=== PATIENT | male | born 1970 | race African-American/Black ===

== ENCOUNTER 2019-04-22 08:49 | Emergency (ER) | payer OTHER, SELFPAY ==
[2019-04-22 08:58] VITALS: BP 125/85; PULSE 78; RESP 16; TEMP 36.3; O2SAT 99
--- NOTE | 2019-04-22 09:35 | ED.URI ---
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 EYES: Denies visual changes, redness, discharge. ENT: has rhinorrhea, congestion, sore throat, no otalgia. CARDIOVASCULAR: Denies chest pain, palpitations, edema. RESPIRATORY: Denies dyspnea, wheezing, has cough GASTROINTESTINAL: Denies abdominal pain, nausea, vomiting, diarrhea. GENITOURINARY: Denies dysuria, hematuria, abnormal discharge SKIN: Denies rash or itching. MUSCULOSKELETAL: Denies acute back pain, joint pain, or myalgia. NEUROLOGIC: Denies numbness, or focal weakness. PSYCHIATRIC: Denies anxiety or depression. [facility] Past Medical History Medical History Diabetes Hypertension Social History Social History (Updated 04/22/19 @ 09:38 by Jesika Jordan CNP) Smoking status: Never smoker Alcohol intake: current Gender identity (if verbalized by the patient): Male Comments At time of signature, I agree with nursing past medical, surgical, social and family history. There is no relevant family history pertinent to the presenting complaint. Exam Narrative: Exam Narrative: GENERAL: This is a well-nourished, well-developed patient, in moderate distress. HEAD: normocephalic, atraumatic. EYES: Sclera clear/white. Vision is grossly intact. EARS: External ears normal, auditory canals clear and without drainage, TMs normal without perforation. Hearing grossly intact. NOSE: External nose normal with nasal discharge, nares with redness, with rhinorrhea. THROAT: Mucous membranes moist, posterior pharynx erythema with tonsillar edema NECK: Neck supple, non-tender without lymphadenopathy, masses or thyromegaly. CARDIOVASCULAR: Regular rate and rhythm without murmurs, gallops, or rubs. RESPIRATORY: Clear to auscultation. Breath sounds equal bilaterally. No wheezes, rales, or rhonchi. GASTROINTESTINAL: Abdomen soft, non-tender, nondistended. Bowel sounds are active. No hepato-splenomegaly, or palpable masses. No guarding. SKIN: warm, intact with no suspicious lesions or rash, good texture and turgor. NEURO: awake, alert, and oriented to person, place and time. There were no obvious focal neurologic abnormalities. Steady gait EXTREMITIES: Normal range of motion. No edema BACK: Nontender without deformity or crepitance. No flank tenderness. Course Course Emergency Course: Flu Vital Signs Vital signs: Vital Signs Temperature 97.3 F L 04/22/19 08:58 Pulse Rate 78 04/22/19 08:58 Respiratory Rate 16 04/22/19 08:58 Blood Pressure 125/85 04/22/19 08:58 Pulse Oximetry 99 04/22/19 08:58 Temperature 97.3 F L 04/22/19 08:58 Pulse Rate 78 04/22/19 08:58 Respiratory Rate 16 04/22/19 08:58 Blood Pressure 125/85 04/22/19 08:58 Pulse Oximetry 99 04/22/19 08:58 MDM - URI/Sore Throat Differential Diagnosis Differ
== END 2019-04-22 10:05 | disposition home or self-care (01) ==
PROVIDERS: Emergency Provider Nurse Practitioner
DX: J06.9 Acute upper respiratory infection, unspecified (principal); E11.9 Type 2 diabetes mellitus without complications; I10 Essential (primary) hypertension; E78.00 Pure hypercholesterolemia, unspecified
CPT/HCPCS: 87804; 99213; G0463

== ENCOUNTER 2023-02-09 12:23 | Emergency (ER) | payer OTHER, SELFPAY ==
[2023-02-09 12:39] VITALS: BP 131/83; PULSE 68; RESP 16; TEMP 36.8; O2SAT 100
--- NOTE | 2023-02-09 13:32 | ED.URI ---
HPI - URI/Sore Throat General Chief Complaint: Upper Respiratory Infection Stated Complaint: cough,bodyaches,sinus problem Time Seen by Provider: 02/09/23 13:32 Source: patient Mode of arrival: ambulatory Limitations: no limitations History of Present Illness HPI Narrative: 52-year-old male presents with complaint of nasal congestion, sinus pressure, bilateral ear pressure, cough, chest congestion for 2-3 days. Workup today and had felt full. Reports body aches. Afebrile. No chest pain or shortness breath. Patient taking Zyrtec to treat symptoms. All systems reviewed and negative except as noted above. Related Data Home Medications Medication Instructions Recorded Confirmed lisinopril 40 mg tablet 40 mg PO DAILY 04/22/19 02/09/23 metformin 500 mg tablet 500 mg PO DAILY 04/22/19 02/09/23 simvastatin 20 mg tablet 20 mg PO DAILY 04/22/19 02/09/23 sitagliptin phosphate 100 mg 100 mg PO DAILY 04/22/19 02/09/23 tablet (Januvia) triamterene 37.5 1 tablet PO QAM 04/22/19 02/09/23 mg-hydrochlorothiazide 25 mg tablet verapamil 240 mg tablet,extended 240 mg PO DAILY 04/22/19 04/22/19 release Allergies Allergy/AdvReac Type Severity Reaction Status Date / Time No Known Allergies Allergy Verified 02/09/23 13:41 Review of Systems Review of Systems: CONSTITUTIONAL: Denies fever, chills, or sweats. reports fatigue. EYES: Denies visual changes, redness, or discharge. ENT: Reports rhinorrhea, congestion. Denies sore throat. Reports otalgia. CARDIOVASCULAR: Denies chest pain, palpitations, or edema. RESPIRATORY: Reports cough. Denies dyspnea. GASTROINTESTINAL: Denies abdominal pain, nausea, vomiting, or diarrhea. GENITOURINARY: Denies dysuria or hematuria. SKIN: Denies rash or itching. MUSCULOSKELETAL: Denies back pain, joint pain, or myalgia. NEUROLOGIC: Denies headache, numbness, or weakness. PSYCHIATRIC: Denies anxiety or depression. All other systems reviewed are negative, except as documented in HPI. [facility] Past Medical History Medical History (Updated 02/09/23 @ 14:16 by Hali Doherty NP) Diabetes Hypertension Social History Social History (Updated 04/22/19 @ 09:38 by Jesika Jordan, [employer]) Smoking status: Never smoker Alcohol intake: current Gender identity (if verbalized by the patient): Male Comments At time of signature, agree with nursing past medical, surgical, social and family history. There is no relevant family history pertinent to the presenting complaint. Exam Narrative: GENERAL: This is a well-nourished, well-developed patient, in no apparent distress. HEAD: normocephalic, atraumatic. EYES: PERRL. Sclera clear/white. Vision is grossly intact. EARS: External ears normal, auditory canals clear and without drainage, fluid bilateral TMs without erythema, bulging. No perforation bilaterally. Hearing intact. NOSE: External nose normal with Clear nasal drainage, erythema and swelling to bilateral nares. THROAT: Mucous membranes moist, posterior pharynx clear. NECK: Neck supple, non-tender without lymphadenopathy, masses or thyromegaly. CARDIOVASCULAR: Regular rate and rhythm without murmurs, gallops, or rubs. RESPIRATORY: Clear to auscultation. Breath sounds equal bilaterally. No wheezes, rales, or rhonchi. SKIN: warm, Dry, intact with no suspicious lesions or rash, good texture and turgor. NEURO: awake, alert, and oriented to person, place and time. There were no obvious focal neurologic abnormalities. EXTREMITIES: No joint tenderness, effusion, or edema noted. Course Course Level of Care: Express Care Visit Vital Signs Vital signs: Vital Signs Temperature 36.8 C 02/09/23 12:39 Pulse Rate 68 02/09/23 12:39 Respiratory Rate 16 02/09/23 12:39 Blood Pressure 131/83 02/09/23 12:39 Pulse Oximetry 100 02/09/23 12:39 Oxygen Delivery Room Air 02/09/23 12:39 Temperature 36.8 C 02/09/23 12:39 Pulse Rate 68 02/09/23 12:
== END 2023-02-09 14:25 | disposition home or self-care (01) ==
PROVIDERS: Emergency Provider Nurse Practitioner Family; PCP Family Medicine
DX: J06.9 Acute upper respiratory infection, unspecified (principal); Z20.822 Contact with and (suspected) exposure to COVID-19; E11.9 Type 2 diabetes mellitus without complications; I10 Essential (primary) hypertension; Z79.84 Long term (current) use of oral hypoglycemic drugs
CPT/HCPCS: 87426; 87804; 99213; C9803; G0463